=== PATIENT | female | born 1955 | race Caucasian/White ===

== ENCOUNTER 2022-07-11 00:36 | Inpatient (IN) | payer MEDICARE, SELFPAY ==
[2022-07-11] VITALS (31 sets, daily range): BP systolic 103–162; BP diastolic 36–89; PULSE 55–85; RESP 10–18; TEMP 36.1–36.9; O2SAT 98–100
--- NOTE | ~2022-07-11 | XR_ITS ---
EXAMINATION: XR hip LT min 2V DATE: 07/11/2022 11:53 INDICATION: Relocation of dislocated left total hip arthroplasty. TECHNIQUE: 2 fluoroscopic images of the left hip were obtained during procedure performed by Dr. Kay castellon. Radiologist was not present for the imaging or procedure. The amount of fluoroscopy time used du ring this procedure was 0.1 minutes. COMPARISON: None. FINDINGS: Successful reduction of the previously dislocated left total hip arthroplasty which now appears in ne ar-anatomic alignment. No evident fracture of the immediately adjacent visualized bones. IMPRESSION: 1. Successful reduction of the previously dislocated left total hip arthroplasty. Reviewed, dictated and finalized at location [facility]. IMPRESSION: 1. Successful reduction of the previously dislocated left total hip arthroplast y.
--- NOTE | ~2022-07-11 | CT_ITS ---
EXAMINATION: CT brain wo con DATE: 07/11/2022 01:18 INDICATION: Altered mental state TECHNIQUE: Computed tomography (CT) of the head was performed without intravenous contrast. The mA wa s adjusted according to patient size. Iterative reconstruction technique was employed. Exam dose: 60 5.33 mGy-cm total exam DLP. COMPARISON: None FINDINGS: Bilateral carotid siphon internal carotid artery calcifications. Nonspecific diminished att enuation of the cerebral white matter, likely due to chronic small vessel ischemic changes. No intracranial mass lesion or hemorrhage or cerebrovascular accident is evident. No midline shift or mass t effect. There is moderate cerebellar and cerebral volume loss. No subdural or epidural hematoma. The mastoid air cells and paranasal sinuses are normally developed and aerated. No fracture or bone destruction of the cranial vault. IMPRESSION: Cerebral atherosclerosis and chronic small vessel ischemic changes of the cerebral white matter No acute intracranial finding Reviewed, dictated and finalized at [facility]. Reviewed, dictated and finalized at location A.
--- NOTE | ~2022-07-11 | XR_ITS ---
EXAMINATION: XR hip LT 2V w AP pelvis INDICATION: Left hip pain TECHNIQUE: AP view the pelvis and two views of the left hip are obtained. COMPARISON: None available FINDINGS: There are changes of left hip arthroplasty. The femoral component is superiorly and lateral ly dislocated with respect to the acetabular component. No fracture is identified. There is advanced osteoarthritis of the right hip. There is moderate to severe lumbar spondylosis. IMPRESSION: 1. Superior and lateral dislocation of the femoral component of the left hip arthroplasty. Reviewed, dictated and finalized at location A. IMPRESSION: 1. Superior and lateral dislocation of the femoral component of the left hip ar throplasty.
--- NOTE | ~2022-07-11 | XR_ITS ---
XR chest 1V 07/11/2022 01:29 Indication: Altered mental status Procedure: AP view of the chest Comparison: No prior studies for comparison. Findings: Heart size normal. No focal air space disease, pulmonary edema, pleural effusion or suspect ed pneumothorax. There is scoliosis. No acute osseous abnormality. Impression: 1: No acute cardiopulmonary disease. Reviewed, dictated and finalized at location B. Impression: 1: No acute cardiopulmonary disease.
--- NOTE | 2022-07-11 00:53 | ED.GENADULT ---
HPI - General Adult General Chief complaint: Fall Stated complaint: L HIP DISLOCATION Source: RN notes reviewed History of Present Illness HPI narrative: Patient presents emergency department from home via EMS for left hip dislocation. The history is per the patient as well as the as the patient has a history of dementia the patient is currently visiting from [place] she has a history of a left hip replacement 4 years ago and has had 1 episode where he was dislocated this evening the patient awoke and had a generalized rash and was itching at that time it was felt that she was having allergic reaction to something she ate this evening and the patient's had given her some Benadryl the patient at that time had had an episode where she then slid down the bed onto the floor states the patient has a history of grand mal seizures. States that her normal seizures caused her to lock up and shake he states that approximately 4 months ago she began to have episodes where her eyes were rolling to the back of their head and she briefly loses consciousness for several seconds and then comes back to states the first episode occurred 4 months ago when she had fallen off the toilet. This evening the patient was seen at the side of the bed when her eyes rolled into the back of her head and she slid down to the floor the patient was unconscious for several seconds then came back to at that time the patient helped the patient back up the patient then needed to use restroom and she gone to use the restroom. After she did use restroom she again and had a second episode where her eyes rolled in the back of her head and she was briefly unconscious at that time she had been getting up off the toilet and she had twisted an collapsed towards the floor she was cut by her but secondary to this twisting motion the patient dislocated her left hip. Patient is on Lamictal for seizures and has not missed any doses the patient currently denies any fevers or chills chest pain shortness of breath notes pain in the left. Patient was given morphine 4 mg by EMS in route. Per the the patient has had no formal work-up for syncope or for these new episodes of brief loss of consciousness Related Data Allergies Allergy/AdvReac Type Severity Reaction Status Date / Time No Known Allergies Allergy Verified 07/11/22 00:46 Review of Systems Review of Systems: Gen.: Denies fevers or chills Eyes: Denies eye pain or visual change ENT: Denies congestion Respiratory: Denies shortness of breath or cough CV: Denies chest pain or palpitations GI: Denies abdominal pain nausea, emesis Musculoskeletal: Denies back pain ports left hip pain Neuro: See HPI Skin: Reports generalized rash with itching Except as documented, all other systems reviewed and negative [facility] Past Medical History Medical History (Updated 07/11/22 @ 04:38 by Richard Verde DO) Dementia Surgical History Surgical History (Updated 07/11/22 @ 00:56 by Richard Verde DO) History of left hip replacement Social History Social History (Updated 07/11/22 @ 00:56 by Richard Verde DO) Smoking status: Never smoker Exam Narrative: APPEARANCE: No acute distress, nontoxic, resting in bed EYES: EOM, PERRL HEENT: Normocephalic, atraumatic, OMM RESPIRATORY: No respiratory distress Clear to auscultation bilaterally with no rhonchi wheezing or rales. CARDIOVASCULAR: Regular rate and rhythm without murmurs rubs or gallops. ABDOMINAL: Soft, nontender, nondistended, no rebound or guarding MUSCULOSKELETAl: No clubbing, cyanosis or edema. Left hip is tender to palpation with pain with any movement there is no tenderness left knee or ankle dorsalis pedis pulse 2+ neurovascular intact the left leg is shortened and rotated NEURO: Awake and alert x 2. Following commands, speech normal, no focal deficits SKIN:: Warm, dry. Urticarial rash on bilateral thighs abdomen no vesicles seen PSYCH
[2022-07-11] MEDS: methylPREDNISolone SOD SUCC 125 MG VIAL IV PUSH (01:17)
--- NOTE | 2022-07-11 01:41 | ECG_ITS ---
Measurements Intervals Jackman Rate: 61 P: 60 KS: 199 QRS: 41 QRSD: 101 T: 67 QT: 442 QTc: 447 Interpretive Statements SINUS RHYTHM BASELINE ARTIFACT- I, II, III, AVR, AVL, AVF, V1-V6 NORMAL ECG NO PREVIOUS ECG AVAILABLE FOR COMPARISON Electronically Signed On 07-11-2022 7:13:34 CDT by Abdi Marquez D.O.
[2022-07-11 01:43] LABS: Basophils Percent Auto 0.2 % (0.2-1.2); Eosinophils Absolute Auto 0.1 K/mm3 (0-0.3); Eosinophils Percent Auto 0.5 % (0-4.4); Hematocrit 41.7 % (37.0-47.0); Hemoglobin 13.8 g/dL (12.0-15.0); Immature Granulocyte Absolute 0.04 K/mm3 (0.00-0.031); Immature Granulocyte Percent A 0.3 % (0-0.5); Lymphocytes Absolute Auto 1.15 K/mm3 (0.9-3.2); Lymphocytes Percent Auto 9.5 % (18.3-44.2); Mean Corpuscular HGB Conc 33.1 g/dl (32-36); Mean Corpuscular Hemoglobin 31.1 pg (26-34); Mean Corpuscular Volume 93.9 fl (80-100); Mean Platelet Volume 10.9 fl (7.4-10.4); Monocytes Absolute Auto 0.8 K/mm3 (0.1-0.6); Monocytes Percent Auto 6.7 % (2.6-8.5); Neutrophils Percent Auto 82.8 % (45.5-73.1); Platelet Count Result 241 k/mm3 (150-375); Red Blood Count 4.44 M/mm3 (4.2-5.4); Red Cell Distribution Width 13.4 % (11.5-14.5); White Blood Count 12.1 K/mm3 (4.5-10.0)
[2022-07-11 01:54] LABS: Partial Thromboplastin Time 23.3 SECONDS (22.3-36.8); Prothrombin Time 13.1 Seconds (11.1-14.7)
[2022-07-11 01:56] LABS: Alanine Aminotransferase 22 U/L (6-35); Albumin Level 4.2 g/dL (3.5-5.1); Alkaline Phosphatase 87 U/L (38-126); Anion Gap 8 mmol/L (8-16); Aspartate Amino Transferase 34 U/L (14-36); Bilirubin,Total 0.3 mg/dL (0.2-1.3); Blood Urea Nitrogen 23 mg/dL (7-17); Calcium 9.5 mg/dL (8.4-10.2); Carbon Dioxide 30 mmol/L (22-30); Chloride 99 mmol/L (98-107); Estimated CRCL calculation 56 ml/min; Estimated Glomerular Filt Rate > 60; Glucose 158 mg/dL (65-110); Potassium 3.7 mmol/L (3.4-5.0); Sodium 137 mmol/L (137-145)
[2022-07-11 02:08] LABS: Troponin I < 0.012 ng/mL (0.000-0.034)
--- NOTE | 2022-07-11 02:19 | PC.NURSE ---
Jolly catheter insertion attempted by PCT and RN unsuccessfully, notified
[2022-07-11 02:22] LABS: SARS-CoV-2 RNA PCR Negative
--- NOTE | 2022-07-11 02:38 | PC.NURSE ---
Pt's at desk demanding to have things expedited. Doesn't understand what is taking so long. RN informed jeremiah waiting on lab results, xrays, and cat scan results.
--- NOTE | 2022-07-11 02:57 | PC.NURSE ---
Report given to Shari LU on pt and care handed off
[2022-07-11] MEDS: MORPHINE SULFATE (*CRX) 4 MG/ML INJ IV PUSH (03:25)
--- NOTE | 2022-07-11 05:02 | PC.NURSE ---
Patient unhappy That they have been waiting in the ER for 4 hours. states he thinks needs to be a 1 on 1 with a nurse because she is confused and in pain. EDP Ammon and dry house tender tried to talk to the patient about this situation. Patient also has made several comments about the sign in the ED about not being aggressive to staff. Patient is resting comfortably in bed with next to her.
--- NOTE | 2022-07-11 07:58 | PM.CNCAR ---
Assessment and Plan Assessment and plan (1) Syncope: Code(s): R55 - Syncope and collapse Status: Acute Plan this is a 66-year-old lady without previous cardiac pathology who appears to be having occasional syncopal episodes 1 occurring about 4 months ago and 1 last night. This has resulted in a fall and a dislocation of her left hip prosthesis. Her telemetry in the hospital has not demonstrated any dysrhythmias that would explain this. She does have a history of a seizure disorder for many years and this could be playing a role as well. In any event I do not believe that there is a cardiac reason to avoid anesthesia /sedation and reducing her hip dislocation. An echocardiogram has been ordered by the hospitalist obviously that has not yet occurred 1st thing this morning. I do not think we have to wait for that in order to address this patient's prosthetic hip dislocation in the operating room. Will follow her with you while she is in the hospital. Following discharge she should be seen by diesel engine specialist in her local community back in [place] to determine if further evaluation of syncopal episodes is in order. Obviously she is at risk for ongoing fall and injury based on these syncopal episodes which at this point are unexplained Hugo Min MD [facility] History of Present Illness History of Present Illness Consult date/time: 07/11/22 07:58 Reason For Visit: SYNCOPE, L HIP DISLOCATION Narrative: This is a 66-year-old woman I am seeing at the request of the hospitalist because of apparent a syncopal episode that have resulted in a fall and dislocation of a left hip prosthesis. Patient is not capable of providing any history apparently she has a history of dementia and a history of a longstanding seizure disorder. She and her are visiting from [place] for a family reasons and do not receive any other medical care in this vicinity in general. The was a good historian indicates that his has had a couple of episodes where she appears to have lost consciousness. The 1st of these episodes occurred about 4 months ago when they were visiting family up in the [place] area. That episode occurred after she was urinating in the toilet. He was helping or off off that and she fell off the toilet and regained consciousness shortly after that. This episode was similar she was needing to use the restroom he helped her into the restroom and after urinating again had a fall and on both episodes he states that she seems to be in her usual state of health and then suddenly is unresponsive and has a blank stare on her face. These episodes seem to be very short lived they last for several seconds and then resolved. She does have a history of a seizure disorder since childhood and typically has generalized seizures when they occur. These episodes of abrupt and brief loss of consciousness do not seem to be similar to her established generalized seizures. She does not have any history of any cardiac pathology she is in sinus rhythm on 12 lead ECG and on telemetry and has not demonstrated any arrhythmias since being placed in the hospital. She has previous left hip arthroplasty and after the fall off that brought her into this hospital it is found to be dislocated and the plan was to have her seen by orthopedic surgery consulted and consider reducing this in the operating room under general anesthesia. The primary team nor the orthopedic tour consultant have seen this lady at the time of this consultation so I do not know directly with the plans are at this time Review of Systems Review of Systems: ROS unobtainable: Yes unobtainable due to mental status PMF Past Medical History Medical History (Updated 07/11/22 @ 04:38 by Richard Verde DO) Dementia Surgical History Surgical History (Updated 07/11/22 @ 00:56 by Richard Verde DO) History of left hip replacement Social History Social History (Updated 07/11/22
--- NOTE | 2022-07-11 09:24 | WPDNEURCNPN ---
Assessment and Plan Assessment and plan (1) Seizure cerebral: Code(s): G40.909 - Epilepsy, unspecified, not intractable, without status epilepticus Status: Acute (2) History of left hip replacement: Code(s): Z96.642 - Presence of left artificial hip joint Status: Acute (3) Syncope: Code(s): R55 - Syncope and collapse Status: Acute (4) Dementia: Code(s): F03.90 - Unspecified dementia without behavioral disturbance Status: Acute Plan Joanne Jiménez is a 66 year old female with a history of dementia, epilepsy, and left hip replacement who presented after an episode of unresponsiveness and staring resulting in a fall with left hip dislocation. She has had one other episode similar to this one that also occured while urinating. These episodes are different than her typical seizure semiology. Could be seizures vs syncope. Discussed with that while it is unclear whether the three episodes she has had over the past year are seizures, it may be worth increasing her medication to see if there is reduction in these events since patient is clearly at risk for sustaining injury with these episodes. is agreeable to adjust Lamictal. - Increase Lamictal to 300mg BID - Patient should follow-up with her primary Neurologist Consult date: 07/11/22 Time Seen: 09:24 Reason for consult: Syncope vs seizure HPI: Joanne Jiménez is a 66 year old female with a history of dementia, epilepsy, and left hip replacement who presented after sustaining a fall, resulting in left hip dislocation. Patient was in her usual state of health yesterday when she developed rash, itching which was thought to be a food related allergic reaction. She also had an episode that occurred while after urinating and getting up from the toilet described as unresponsiveness and staring resulting in fall while was helping her go the bathroom. She regained consciousness fairly quickly. There were no other abnormal movements or incontinence during the episode. The fall resulted in the dislocation of the left hip. She has had a similar episode of staring and unresponsiveness while urinating which occurred about 4 months ago, again witnessed by . During this episode she was sitting on the toilet and slumped over while staring off as well as shaking in bilateral upper extremities. She was incontinent of stool during this episode. She had a third episode within the past year where found her down with her eyes closed. He reports she looked very groggy and suspects that she may have had a seizure before he found her. Patient receives all her medical care in [place]. She is on Lamictal 250mg BID. reports good compliance of the medication without any recent missed doses. Her typical seizure semiology is described as [id number]. Her last typical seizure was about 5 or 6 years ago. She has not had any adjustments to her Lamictal in the past year. reports that most of her epilepsy care is through [facility]. Patient was taken to [facility] ED where she had a CT head which was negative for acute process. EKG showed sinus rhythm. Hip XR confirmed the presence of left hip dislocation. Cardiology was consulted for the possible syncopal events. She was taken to OR for closed reduction of L hip. Review of Systems Review of Systems: ROS unobtainable: Yes unobtainable due to mental status PMFSH Past Medical History Medical History Dementia Surgical History Surgical History History of left hip replacement Social History Social History Smoking status: Never smoker Alcohol intake: never Substance use: never Spiritual care concerns: No Meds Home Medications and Allergies Home Medications Medication Instructions Jonathan
--- NOTE | 2022-07-11 09:55 | PM.CNOR ---
Assessment and Plan Assessment and plan (1) Closed dislocation of left hip: Qualifiers: Encounter type: initial encounter Qualified Code(s): S73.005A - Unspecified dislocation of left hip, initial encounter Code(s): S73.005A - Unspecified dislocation of left hip, initial encounter Status: Acute Assessment and Plan: 66-year-old woman with left total hip arthroplasty approximately 4 years ago in [place]. Syncopal episode last night with dislocation of hip. History of previous dislocation within the 1st year of surgery. Treated with closed reduction at that time. Etiology of syncopal episodes unclear at this time. Discussed with patient and her . Plan to proceed with closed reduction with sedation when medically cleared. Risks, benefits and alternatives discussed with the patient and family. Questions answered. Plan: Left hip closed reduction (2) History of left hip replacement: Code(s): Z96.642 - Presence of left artificial hip joint Status: Acute History of Present Illness HPI Consult date: 07/11/22 Requesting physician: Richard Verde DO Chief complaint: SYNCOPE, L HIP DISLOCATION Narrative: 66-year-old woman presented to the emergency room after a syncopal episode and left leg deformity. Found to have left hip arthroplasty dislocation. Patient admitted to the hospital for further medical workup of syncopal episode and planned reduction of Hip. Review of Systems Constitutional: Constitutional: Denies fever(s) Eyes: Eyes: Denies blurry vision ENT: Reports Normal hearing present Cardiovascular: Cardiovascular: Denies chest pain and Denies dyspnea Respiratory: Respiratory: Denies dyspnea and Denies wheezing Gastrointestinal: Gastrointestinal: Denies abdominal pain Genitourinary: Genitourinary: Denies urinary urgency Musculoskeletal: Musculoskeletal: Reports as per HPI and Denies numbness Integumentary/Breasts: Skin/Breast: Denies changing lesions and Denies sores Neurologic: Reports Normal hearing present, Denies behavioral changes, Denies confusion, Denies numbness and Denies convulsions Psychiatric: Psychiatric: Denies behavioral changes, Denies confusion and Denies hallucinations Endocrine: Endocrine: Denies heat intolerance Hematologic/Lymphatic: Hematologic/Lymphatic: Denies easy bleeding Allergic/Immunologic: Allergic/Immunologic: Denies wheezing PMFSH Past Medical History Medical History Dementia Surgical History Surgical History History of left hip replacement Social History Social History Smoking status: Never smoker Alcohol intake: never Substance use: never Spiritual care concerns: No Meds Home Medications and Allergies Home Medications Medication Instructions Recorded Confirmed Type Lactobacillus acidoph-L.bulgaricus 1 tablet PO DAILY 07/11/22 07/11/22 History 1 million cell tablet (Floranex) atorvastatin 20 mg tablet 20 mg PO DAILY 07/11/22 07/11/22 History calcium carb-vitamin D3 ER 600 mg 1 tablet PO DAILY 07/11/22 07/11/22 History (1,500 mg)-500 unit tablet,ER 24 hr diclofenac sodium 75 mg 75 mg PO HS 07/11/22 07/11/22 History tablet,delayed release donepezil 23 mg tablet 23 mg PO HS 07/11/22 07/11/22 History lamotrigine 100 mg tablet 250 mg PO BID 07/11/22 07/11/22 History (Lamictal) terbinafine HCl 250 mg tablet 250 mg PO HS 07/11/22 07/11/22 History vitamin B complex 1 cap PO DAILY 07/11/22 07/11/22 History Allergies Allergy/AdvReac Type Severity Reaction Status Date / Time No Known Allergies Allergy Verified 07/11/22 00:46 Vital Signs Vital Signs - 24 hr 07/11/22 00:37 07/11/22 00:43 07/11/22 00:44 Temperature 97.1 F L Pulse Rate 61 56 L 59 L Respiratory Rate 12 12 11 L Blood Pressure 105/36 L 105/3
--- NOTE | 2022-07-11 10:01 | WPDHPUPDATE1 ---
History and Physical Update Update Date/Time: 07/11/22 10:01 History and Physical has been reviewed, including an updated exam of the patient. There are NO changes in the patient's condition. Risks, benefits, and alternatives have been discussed and questions answered. Patient agrees to proceed with procedure.
--- NOTE | 2022-07-11 10:57 | WPDANESEPPF ---
Anes - Initial Pre Proc Eval Procedure: Operation Date: 07/11/22 11:30 Proposed Procedures p Closed Reduction Left Hip - Timothy Morrison MD Date/Time: 07/11/22 10:57 Surgeon: Magalie Daniels DO Pre Op Diagnosis: SYNCOPE, L HIP DISLOCATION Patient Data Age: 66 Gender: F Height: 1.65 m Weight: 69.5 kg Last Vital Signs Temp 36.1 C L 07/11/22 06:00 Pulse 61 07/11/22 06:00 Resp 14 07/11/22 06:00 BP 145/63 H 07/11/22 06:00 Pulse Ox 98 07/11/22 06:00 O2 Del Method Room Air 07/11/22 00:37 Allergies Allergy/AdvReac Type Severity Reaction Status Date / Time No Known Allergies Allergy Verified 07/11/22 11:00 Home Medications Medication Instructions Recorded Confirmed Type Lactobacillus acidoph-L.bulgaricus 1 tablet PO DAILY 07/11/22 07/11/22 History 1 million cell tablet (Floranex) atorvastatin 20 mg tablet 20 mg PO DAILY 07/11/22 07/11/22 History calcium carb-vitamin D3 ER 600 mg 1 tablet PO DAILY 07/11/22 07/11/22 History (1,500 mg)-500 unit tablet,ER 24 hr diclofenac sodium 75 mg 75 mg PO HS 07/11/22 07/11/22 History tablet,delayed release donepezil 23 mg tablet 23 mg PO HS 07/11/22 07/11/22 History lamotrigine 100 mg tablet 250 mg PO BID 07/11/22 07/11/22 History (Lamictal) terbinafine HCl 250 mg tablet 250 mg PO HS 07/11/22 07/11/22 History vitamin B complex 1 cap PO DAILY 07/11/22 07/11/22 History Laboratory Tests 07/11/22 07/11/22 07/11/22 01:37 01:37 01:37 WBC 12.1 K/mm3 H K/mm3 (4.5-10.0) RBC 4.44 M/mm3 M/mm3 (4.2-5.4) Hgb 13.8 g/dL g/dL (12.0-15.0) Hct 41.7 % % (37.0-47.0) MCV 93.9 fl fl (80-100) MCH 31.1 pg pg (26-34) MCHC 33.1 g/dl g/dl (32-36) RDW 13.4 % % (11.5-14.5) Plt Count 241 k/mm3 k/mm3 (150-375) MPV 10.9 fl H fl (7.4-10.4) Immature Gran % (Auto) 0.3 % % (0-0.5) Neut % (Auto) 82.8 % H % (45.5-73.1) Lymph % (Auto) 9.5 % L % (18.3-44.2) Robertson % (Auto) 6.7 % % (2.6-8.5) Eos % (Auto) 0.5 % % (0-4.4) Baso % (Auto) 0.2 % % (0.2-1.2) Lymph # (Auto) 1.15 K/mm3 K/mm3 (0.9-3.2) Robertson # (Auto) 0.8 K/mm3 H K/mm3 (0.1-0.6) Eos # (Auto) 0.1 K/mm3 K/mm3 (0-0.3) Baso # (Auto) 0.0 K/mm3 K/mm3 (0.0-0.1) Abs Immat Gran (auto) 0.04 K/mm3 H K/mm3 (0.00-0.031) Absolute Neuts (auto) 10.0 K/mm3 H K/mm3 (1.3-6.7) Absolute Nucleated RBC 0.0 K/mm3 K/mm3 (0.0-0.012) Nucleated RBC % 0.0 % % (0.0-0.2) PT 13.1 Seconds Seconds (11.1-14.7) INR 1.0 APTT 23.3 SECONDS SECONDS (22.3-36.8) Sodium 137 mmol/L mmol/L (137-145) Potassium 3.7 mmol/L mmol/L (3.4-5.0) Chloride 99 mmol/L mmol/L (98-107) Carbon Dioxide 30 mmol/L mmol/L (22-30) Anion Gap 8 mmol/L mmol/L (8-16) BUN 23 mg/dL H mg/dL (7-17) Creatinine 0.80 mg/dL mg/dL (0.7-1.0) Estim Creat Clear Calc 56 ml/min ml/min Estimated GFR > 60 (59 - ) Glucose 158 mg/dL H mg/dL (65-110) Calcium 9.5 mg/dL mg/dL (8.4-10.2) Total Bilirubin 0.3 mg/dL mg/dL (0.2-1.3) AST 34 U/L U/L (14-36) ALT 22 U/L U/L (6-35) Alkaline Phosphatase 87 U/L U/L (38-126) Troponin I < 0.012 ng/mL ng/mL (0.000-0.034) Total Protein 7.0 g/dL g/dL (6.3-8.2) Albumin 4.2 g/dL g/dL (3.5-5.1) SARS-CoV-2 RNA (RT-PCR) 07/11/22 01:37 WBC RBC Hgb Hct MCV MCH MCHC RDW Plt Count MPV Immature Gran % (Auto) Neut % (Auto) Lymph % (Auto) Robertson % (Auto) Eos % (Auto) Baso % (Auto) Lymph # (Auto) Robertson # (Auto) Eos # (
[2022-07-11] MEDS: LACTATED RINGERS 1,000 ML 30 ML IV CONT (11:00)
--- NOTE | 2022-07-11 12:13 | P.OP_ITS ---
Procedure Note - Detailed Date of Procedure 07/11/22 Pre-op Diagnosis SYNCOPE, L HIP DISLOCATION Post-op Diagnosis Same Procedure Performed Closed reduction left total hip arthroplasty dislocation Surgeon Timothy Morrison MD Linen Room Worker 1st help desk assistant Anesthesia MAC Indications 66-year-old woman who had a syncopal episode fell and sustained a left total hip arthroplasty dislocation. Presents for closed reduction under anesthesia. Description of Procedure Patient identified in the preoperative holding area. Extremity marked. Informed consent given by the patient and her . Brought to the operating room and underwent conscious sedation by the anesthesia team. Patient positioned supine on the operating room table. The hip was carefully flexed and adducted. longitudinal traction against a counter traction was then applied to the left thigh. A visible and palpable reduction event was noted. Leg was brought out into extension. Palpable pulses Left foot was noted both pre and post procedure. a knee immobilizer was applied. Image intensification was brought in and confirmed concentric reduction of the femoral head in the acetabular cup. No change in the position of the components was noted. Patient awoke from anesthesia and transported to recovery room in stable condition. Estimated Blood Loss 0 Drains No Packing No Pathology None sent Complications None Condition Stable Disposition PACU
--- NOTE | 2022-07-11 12:42 | PM.IMHP ---
H&P: HPI History of Present Illness Date/Time: 07/11/22 12:42 Chief Complaint: Fall Narrative: ED-HPI narrative: Patient presents emergency department from home via EMS for left hip dislocation.? The history is per the patient as well as the as the patient has a history of dementia the patient is currently visiting from [place] she has a history of a left hip replacement 4 years ago and has had 1 episode where he was dislocated this evening the patient awoke and had a generalized rash and was itching at that time it was felt that she was having allergic reaction to something she ate this evening and the patient's had given her some Benadryl the patient at that time had had an episode where she then slid down the bed onto the floor states the patient has a history of grand mal seizures.? States that her normal seizures caused her to lock up and shake he states that approximately 4 months ago she began to have episodes where her eyes were rolling to the back of their head and she briefly loses consciousness for several seconds and then comes back to states the first episode occurred 4 months ago when she had fallen off the toilet.? This evening the patient was seen at the side of the bed when her eyes rolled into the back of her head and she slid down to the floor the patient was unconscious for several seconds then came back to at that time the patient helped the patient back up the patient then needed to use restroom and she gone to use the restroom.? After she did use restroom she again and had a second episode where her eyes rolled in the back of her head and she was briefly unconscious at that time she had been getting up off the toilet and she had twisted an collapsed towards the floor she was cut by her but secondary to this twisting motion the patient dislocated her left hip. Patient is on Lamictal for seizures and has not missed any doses the patient currently denies any fevers or chills chest pain shortness of breath notes pain in the left.? Patient was given morphine 4 mg by EMS in route.? Per the the patient has had no formal work-up for syncope or for these new episodes of brief loss of consciousness. Patient is 66 y/o female with history of seizures and has been taking Lamictal, patient s/p left total hip arthroplasty 4 year ago, and after 1 year had left hip dislocation of the hip after a syncopal episode and was treated close reduction of the hip, similarly patient had another syncopal episode with unresponsiveness and staring resulting in fall and again this time patient had dislocation of the left hip, patient is seen by Dr Morrison orthopedic surgeon and plan is to take patient to OR for the closed reduction of the hip, concern for syncopal episode and patient was seen by alley worker does not suspect syncopal episode due to cardiac reason patient is cleared for the surgical reduction of the hip, another concern is that patient had seizures or syncopal episode patient was seen by neurologist, patient CT scan head was negative and does not feel EEG would be helpful to figure out reason for her fall, patient remains clinically stable, will follow up after surgery and recommend PT/OT and patient may benefit acute rehab. patient is admitted as observation status Review of Systems Review of Systems: ROS unobtainable: Yes unobtainable due to medical condition PMFSH Past Medical History Medical History Dementia Surgical History Surgical History History of left hip replacement Social History Social History Smoking status: Never smoker Alcohol intake: never Substance use: never Spiritual care concerns: No Meds Home Medications and Allergies Home Medications Medication Instructions Recorded Confirmed Type Lactobacillus ac
--- NOTE | 2022-07-11 14:23 | PHAR ---
Home medications verified: Intact Lamictal 100mg tabs, also multiple Lamictal 100mg tabs cut in half. Per RN, patient must use brand name. Pills in daily pill divider, so no Rx bottle to use as a reference. Tonight's & tomorrow AM's doses from divider & given back in labeled Rx bottles Also verified Donepezil 23mg tab, removed #1 for tonight's dose, & returned in labeled baggie
[2022-07-11] MEDS: PHARMACIST COMMUNICATION ORDER 1 EACH XX (16:43)
[2022-07-11] MEDS: SENNA/DOCUSATE SODIUM TABLET 2 TAB PO (17:24)
[2022-07-11] MEDS: DICLOFENAC SOD 75 MG TABLET.EC PO (20:19)
[2022-07-11] MEDS: diazePAM (*CRX) 5 MG TABLET PO (20:19)
[2022-07-11] MEDS: TERBINAFINE HCL 250 MG TABLET PO (20:19)
[2022-07-11] MEDS: ASPIRIN 325 MG ENTERIC TABLET PO (20:20)
[2022-07-12] VITALS: PULSE 77
[2022-07-12 04:00] VITALS: PULSE 52
[2022-07-12 04:24] VITALS: BP 102/61; PULSE 76; RESP 18; TEMP 36.9; O2SAT 98
[2022-07-12 05:59] LABS: Basophils Percent Auto 0.4 % (0.2-1.2); Eosinophils Absolute Auto 0.2 K/mm3 (0-0.3); Eosinophils Percent Auto 3.2 % (0-4.4); Hematocrit 39.7 % (37.0-47.0); Hemoglobin 13.2 g/dL (12.0-15.0); Immature Granulocyte Absolute 0.01 K/mm3 (0.00-0.031); Immature Granulocyte Percent A 0.1 % (0-0.5); Lymphocytes Absolute Auto 1.49 K/mm3 (0.9-3.2); Lymphocytes Percent Auto 20.9 % (18.3-44.2); Mean Corpuscular HGB Conc 33.2 g/dl (32-36); Mean Corpuscular Hemoglobin 30.8 pg (26-34); Mean Corpuscular Volume 92.8 fl (80-100); Monocytes Absolute Auto 0.6 K/mm3 (0.1-0.6); Monocytes Percent Auto 7.7 % (2.6-8.5); Neutrophils Absolute Auto 4.8 K/mm3 (1.3-6.7); Neutrophils Percent Auto 67.7 % (45.5-73.1); Platelet Count Result 203 k/mm3 (150-375); Red Blood Count 4.28 M/mm3 (4.2-5.4); Red Cell Distribution Width 13.2 % (11.5-14.5); White Blood Count 7.1 K/mm3 (4.5-10.0)
[2022-07-12 06:17] LABS: Anion Gap 6 mmol/L (8-16); Blood Urea Nitrogen 11 mg/dL (7-17); Calcium 9.3 mg/dL (8.4-10.2); Carbon Dioxide 28 mmol/L (22-30); Chloride 106 mmol/L (98-107); Estimated CRCL calculation 61 ml/min; Estimated Glomerular Filt Rate > 60; Glucose 99 mg/dL (65-110); Potassium 3.9 mmol/L (3.4-5.0); Sodium 140 mmol/L (137-145)
[2022-07-12 08:00] VITALS: PULSE 71
[2022-07-12 08:03] VITALS: BP 131/69; PULSE 71; RESP 20; TEMP 36.4; O2SAT 99
--- NOTE | 2022-07-12 08:37 | PM.DS ---
DS: Admitting Diagnosis Discharge Date 07/12/2022 Admitting Diagnosis left hip dislocation and seizures DS: Discharge Diagnosis Discharge Diagnosis (1) Syncope: Code(s): R55 - Syncope and collapse Status: Acute Assessment and Plan: ED-[facility] narrative: Patient presents emergency department from home via EMS for left hip dislocation.? The history is per the patient as well as the as the patient has a history of dementia the patient is currently visiting from [place] she has a history of a left hip replacement 4 years ago and has had 1 episode where he was dislocated this evening the patient awoke and had a generalized rash and was itching at that time it was felt that she was having allergic reaction to something she ate this evening and the patient's had given her some Benadryl the patient at that time had had an episode where she then slid down the bed onto the floor states the patient has a history of grand mal seizures.? States that her normal seizures caused her to lock up and shake he states that approximately 4 months ago she began to have episodes where her eyes were rolling to the back of their head and she briefly loses consciousness for several seconds and then comes back to states the first episode occurred 4 months ago when she had fallen off the toilet.? This evening the patient was seen at the side of the bed when her eyes rolled into the back of her head and she slid down to the floor the patient was unconscious for several seconds then came back to at that time the patient helped the patient back up the patient then needed to use restroom and she gone to use the restroom.? After she did use restroom she again and had a second episode where her eyes rolled in the back of her head and she was briefly unconscious at that time she had been getting up off the toilet and she had twisted an collapsed towards the floor she was cut by her but secondary to this twisting motion the patient dislocated her left hip. Patient is on Lamictal for seizures and has not missed any doses the patient currently denies any fevers or chills chest pain shortness of breath notes pain in the left.? Patient was given morphine 4 mg by EMS in route.? Per the the patient has had no formal work-up for syncope or for these new episodes of brief loss of consciousness. Patient is 66 y/o female with history of seizures and has been taking Lamictal, patient s/p left total hip arthroplasty 4 year ago, and after 1 year had left hip dislocation of the hip after a syncopal episode and was treated close reduction of the hip, similarly patient had another syncopal episode with unresponsiveness and staring resulting in fall and again this time patient had dislocation of the left hip, patient is seen by Dr Morrison orthopedic surgeon and plan is to take patient to OR for the closed reduction of the hip, concern for syncopal episode and patient was seen by retread mold operator does not suspect syncopal episode due to cardiac reason patient is cleared for the surgical reduction of the hip, another concern is that patient had seizures or syncopal episode patient was seen by neurologist, patient CT scan head was negative and does not feel EEG would be helpful to figure out reason for her fall, patient remains clinically stable, will follow up after surgery and recommend PT/OT and patient may benefit acute rehab. (2) Closed dislocation of left hip: Qualifiers: Encounter type: subsequent encounter Qualified Code(s): S73.005D - Unspecified dislocation of left hip, subsequent encounter Code(s): S73.005A - Unspecified dislocation of left hip, initial encounter Status: Acute Assessment and Plan: patient seen by orthopedic surgeon and will have close reduction of the left hip (3) Dementia: Code(s): F03.90 - Unspecified dementia, unspecified severity, without behavioral disturbance, psychotic disturbance, mood disturba
--- NOTE | 2022-07-12 08:51 | PM.PNORT ---
Progress Note: A&P Assessment and Plan (1) Closed dislocation of left hip: Qualifiers: Encounter type: subsequent encounter Qualified Code(s): S73.005D - Unspecified dislocation of left hip, subsequent encounter Code(s): S73.005A - Unspecified dislocation of left hip, initial encounter Status: Acute Assessment and Plan: Closed relocation yesterday left hip. Patient alert this morning. Pain controlled. Was able to ambulate. Family would like to be discharged today. Reviewed use of knee immobilizer with the family to prevent knee and hip flexion. Use of walker and assistance with ambulating. Recommend 6 weeks of knee immobilizer and limited activity followed by re-evaluation and therapy at that time. They verbalized understanding. Recommend aspirin as DVT prophylaxis for the next 30 days. Okay to be discharged from orthopedic standpoint. Subjective Subjective Date/Time Seen: 07/12/22 08:51 Post Op day: 1 Principal diagnosis: Left hip dislocation Interval history: Patient awake and alert. Eating breakfast. No complaints of pain. Was able to ambulate to the bathroom. Exam Const: General: comfortable; No acute distress Resp: Effort & Inspection: normal respiratory effort and no audible wheezes Extrem: Right lower extremity: lower leg ( Negative Homans sign), ankle Details: normal ROM ( dorsiflexion and plantar flexion intact) and foot Details: vascular exam Details: dorsalis pedis pulse present and normal capillary refill, tendon exam Details: active flexion normal and active extension normal and motor-sensory exam Details: light-touch normal Location: in all toes; no edema Left lower extremity: normal to inspection, ankle Details: normal ROM and foot Details: vascular exam Details: dorsalis pedis pulse present and normal capillary refill and motor-sensory exam light-touch normal in all toes; no edema Objective Data Vital Signs Vital Signs: Vital Signs - 24 hr 07/11/22 11:07 07/11/22 11:42 07/11/22 11:57 Temperature 98.2 F 98.0 F Pulse Rate 59 L 56 L 60 Respiratory Rate 16 15 12 Blood Pressure 120/62 103/52 L 120/66 Pulse Oximetry 99 100 98 Oxygen Delivery Room Air Simple Face Mask Simple Face Mask Oxygen Flow Rate 6 6 07/11/22 12:12 07/11/22 12:27 07/11/22 12:40 Temperature Pulse Rate 58 L 62 64 Respiratory Rate 14 12 12 Blood Pressure 132/70 144/67 H 134/74 Pulse Oximetry 98 98 98 Oxygen Delivery Room Air Room Air Room Air Oxygen Flow Rate 07/11/22 13:02 07/11/22 13:17 07/11/22 13:47 Temperature 97.9 F 98.3 F 98.5 F Pulse Rate 85 77 80 Respiratory Rate 14 16 16 Blood Pressure 150/69 H 122/80 162/63 H Pulse Oximetry 99 99 98 Oxygen Delivery Oxygen Flow Rate 07/11/22 13:56 07/11/22 15:18 07/11/22 12:00 Temperature Pulse Rate 58 L Respiratory Rate Blood Pressure Pulse Oximetry 98 Oxygen Delivery Room Air Room Air Oxygen Flow Rate 07/11/22 14:47 07/11/22 16:00 07/11/22 18:47 Temperature 98.1 F 97.8 F Pulse Rate 66 57 L 70 Respiratory Rate 18 14 Blood Pressure 117/55 L 121/52 L Pulse Oximetry 100 100 Oxygen Delivery Oxygen Flow Rate 07/11/22 20:05 07/11/22 20:00 07/11/22 22:47 Temperature 98.3 F 98.5 F Pulse Rate 69 59 L 55 L Respiratory Rate 18 17 Blood Pressure 112/65 127/59 L Pulse Oximetry 100 100 Oxygen Delivery Oxygen Flow Rate 07/12/22 04:00 07/12/22 00:00 07/12/22 04:24 Temperature 98.4 F Pulse Rate 52 L 77 76 Respiratory Rate 18 Blood Pressure 102/61 Pulse Oximetry 98 Oxygen Delivery Oxygen Flow Rate 07/12/22 08:03 07/12/22 08:00 Temperature 97.6 F Pulse Rate 71 71 Respiratory Rate 20 Blood Pressure 131/69 Pulse Oximetry 99 Oxygen Delivery Oxygen Flow Rate Intake/Output Intake/Output: Intake & Output 07/09/22 07/10/22 07/11/22 07/12/22 23:59 23:59 23:59 23:59 Intake Total 840 Output Total 400 Balance 840 -400 Meds/R
[2022-07-12] MEDS: ACIDOPHILUS/BULGARICUS CHEWABLE TABLET 1 TABLET PO (09:07)
[2022-07-12] MEDS: ASPIRIN 325 MG ENTERIC TABLET PO (09:08)
[2022-07-12] MEDS: ATORVASTATIN 20 MG TABLET PO (09:08)
[2022-07-12] MEDS: SENNA/DOCUSATE SODIUM TABLET 2 TAB PO (09:08)
[2022-07-12] MEDS: VITAMIN B COMPLEX CAPSULE 1 CAP PO (09:09)
== END 2022-07-12 12:19 | disposition home or self-care (01) | DRG 561 ==
LOC: ANHED 02:46 → ANH3MEDSUR 04:22
PROVIDERS: Orthopaedic Surgery; Admitting Provider Internal Medicine; Emergency Provider Emergency Medicine; Visit Provider Family Medicine
PROC: 0SWBXJZ Revision of Synthetic Substitute in Left Hip Joint, External Approach (ICD-10-PCS; principal; 2022-07-11 11:30)
DX: T84.021A Dislocation of internal left hip prosthesis, initial encounter (principal); G40.909 Epilepsy, unspecified, not intractable, without status epilepticus; F03.90 Unspecified dementia, unspecified severity, without behavioral disturbance, psychotic disturbance, mood disturbance, and anxiety; T78.1XXA Other adverse food reactions, not elsewhere classified, initial encounter; L27.2 Dermatitis due to ingested food; Z20.822 Contact with and (suspected) exposure to COVID-19; Z96.642 Presence of left artificial hip joint
CPT/HCPCS: 36415; 70450; 71045; 73502; 80048; 80053; 84484; 85025; 85610; 85730; 93005; 96361; 96374; 96375; 97162; 97166; 97535; 99285; A9270; C9803; G0378; J0131; J2270; J2704; J2930; J3010; J7120; L1830; U0003; U0005